=== PATIENT | male | born 1965 ===

== ENCOUNTER 2024-04-26 15:29 | Emergency (ER) | payer MEDICAID, OTHER ==
[~2024-04-26] VITALS: Ht 185.4 cm; Wt 97.7 kg
[2024-04-26 15:33] VITALS: TEMP 97.7
[2024-04-26] MEDS: IBUPROFEN 400 MG TABLET PO ONE (15:58)
[2024-04-26] MEDS: ACETAMINOPHEN 325 MG TABLET PO ONE (15:58)
[2024-04-26 16:08] VITALS: BP 122/63; PULSE 79; RESP 16
== END 2024-04-26 16:09 | disposition home or self-care (01) ==
LOC: EMS 15:29
DX: S70.212A Abrasion, left hip, initial encounter (principal); W22.8XXA Striking against or struck by other objects, initial encounter; Y93.89 Activity, other specified; Y92.89 Other specified places as the place of occurrence of the external cause; Y99.0 Civilian activity done for income or pay
CPT/HCPCS: 99283